=== PATIENT | male | born 1980 | race Caucasian/White ===

== ENCOUNTER 2019-10-31 13:00 | Emergency (ER) | payer OTHER, SELFPAY ==
[2019-10-31 13:03] VITALS: BP 158/106; PULSE 100; RESP 20; TEMP 36.8; O2SAT 99
--- NOTE | 2019-10-31 13:28 | ED.GENADULT ---
HPI - General Adult General Chief complaint: Urogenital-Male Stated complaint: back pain/rash on face Time Seen by Provider: 10/31/19 13:28 Source: patient and RN notes reviewed History of Present Illness HPI narrative: Patient is a 38-year-old male that presents the urgent care with complaints of intermittent bilateral flank pain and rash to the face. Patient states that he has had intermittent flank pain since September 20 as well as intermittent lower suprapubic pain. Patient states that he currently does not have any abdominal pain but is experiencing the low back pain. Patient states he also woke up this morning with a fine rash to the face. Patient denies any other upper respiratory symptoms, nausea, vomiting, fever. Patient states he is aware of his high blood pressure but is trying to treat it himself . Patient states that he believes he had a kidney stones and was waiting the 45-day. As suggested online . Patient denies any blood in the urine but does have intermittent burning with urination. No other acute complaints. No acute distress noted. Patient read the plan of care. Related Data Home Medications Medication Instructions Recorded Confirmed No Home Medications 10/31/19 10/31/19 Allergies Allergy/AdvReac Type Severity Reaction Status Date / Time No Known Allergies Allergy Verified 10/31/19 13:21 Review of Systems Review of Systems: Narrative: CONSTITUTIONAL: Denies fever, chills, or sweats. EYES: Denies visual changes, redness, or discharge. ENT: Denies rhinorrhea, congestion, sore throat, or otalgia. CARDIOVASCULAR: Denies chest pain, palpitations, or edema. RESPIRATORY: Denies cough or dyspnea. GASTROINTESTINAL: Reports of intermittent suprapubic tenderness/pain without nausea, vomiting, diarrhea GENITOURINARY: Reports of dysuria SKIN: Denies rash or itching. MUSCULOSKELETAL: Reports of bilateral low back/flank pain NEUROLOGIC: Denies headache, numbness, or weakness. All other systems reviewed are negative, except as documented in HPI. PMFSH Comments At the time of my signature, I reviewed and agree with the nursing past medical, surgical, social, and family history. There is no relevant family history pertinent to the patient complaint. Exam Narrative: Exam Narrative: GENERAL: This is a well-nourished, well-developed patient, in no apparent distress. HEAD: normocephalic, atraumatic. EYES: PERRL. Sclera clear/white. Vision is grossly intact. EARS: External ears normal NOSE: External nose normal with no obvious nasal discharge THROAT: Mucous membranes moist NECK: Neck supple CARDIOVASCULAR: Regular rate and rhythm without murmurs, gallops, or rubs. RESPIRATORY: Clear to auscultation. Breath sounds equal bilaterally. No wheezes, rales, or rhonchi. GASTROINTESTINAL: Abdomen soft, non-tender, nondistended. SKIN: Fine petechiae noted to the face NEURO: awake, alert, and oriented to person, place and time. There were no obvious focal neurologic abnormalities. EXTREMITIES: No clubbing, cyanosis, or edema. BACK: Negative bilateral CVA tenderness Course Vital Signs Vital signs: Vital Signs Temperature 98.3 F 10/31/19 13:03 Pulse Rate 100 10/31/19 13:03 Respiratory Rate 20 10/31/19 13:03 Blood Pressure 158/106 H 10/31/19 13:03 Pulse Oximetry 99 10/31/19 13:03 Temperature 98.3 F 10/31/19 13:03 Pulse Rate 100 10/31/19 13:03 Respiratory Rate 20 10/31/19 13:03 Blood Pressure 158/106 H 10/31/19 13:03 Pulse Oximetry 99 10/31/19 13:03 Reviewed?patient is informed that they may have pre-hypertension or hypertension based on a blood pressure reading in the department. I recommend the patient call the primary care provider listed on their discharge instructions or a physician of their choice this week to arrange follow-up for further evaluation of possible pre-hypertension or hypertension. Transfer Transfered to: [facility] Transportation: Other (Private car) Tr
== END 2019-10-31 13:48 | disposition short-term general hospital (02) ==
PROVIDERS: Emergency Provider Nurse Practitioner Family
DX: R10.9 Unspecified abdominal pain (principal); R23.3 Spontaneous ecchymoses; R30.0 Dysuria; R31.9 Hematuria, unspecified
CPT/HCPCS: 81003; 87086; 87088; 99213; G0463